=== PATIENT | male | born 1955 | race Caucasian/White ===

== ENCOUNTER 2022-07-08 13:43 | Emergency (ER) | payer MEDICARE, MEDICAID ==
[~2022-07-08] VITALS: Ht 188 cm; Wt 101.0 kg
[2022-07-08 14:02] VITALS: BP 191/125
[2022-07-08] MEDS ORDERED: BENA40TA91 MT (16:38)
[2022-07-08] MEDS ORDERED: METO-539 MT (16:38)
[2022-07-08] MEDS ORDERED: APIX5TAB MT (16:38)
== END 2022-07-08 16:49 | disposition home or self-care (01) ==
LOC: ER 13:43
DX: Z76.0 Encounter for issue of repeat prescription (principal); I10 Essential (primary) hypertension; Z87.828 Personal history of other (healed) physical injury and trauma; Z98.890 Other specified postprocedural states
CPT/HCPCS: 99283

== ENCOUNTER 2025-03-22 09:53 | Emergency (ER) | payer OTHER, MEDICAID ==
[~2025-03-22] VITALS: Ht 188 cm; Wt 105.0 kg
[~2025-03-22 09:53] MED LIST: APIX5TAB MT; BENA40TA91 MT; METO-539 MT
[2025-03-22 10:02] VITALS: O2SAT 100
[2025-03-22] MEDS: LIDOCAINE HCL/PF 1% 10 MG/ML 5ML VIAL INFIL ONE (11:31)
[2025-03-22] MEDS: BACITRACIN ZINC OINT UDPKT TOP ONE (11:31)
[2025-03-22] MEDS ORDERED: DOXY100T2 MT (12:02)
[2025-03-22 12:17] VITALS: BP 175/99; PULSE 84; RESP 18; TEMP 37.1; O2SAT 100
== END 2025-03-22 12:17 | disposition home or self-care (01) ==
LOC: ER 09:53
DX: L02.212 Cutaneous abscess of back [any part, except buttock and flank] (principal); I10 Essential (primary) hypertension; I48.91 Unspecified atrial fibrillation; Z79.899 Other long term (current) drug therapy; Z98.890 Other specified postprocedural states
CPT/HCPCS: 99283; 10060; 93005; J2003